=== PATIENT | female | born 1995 | race Two or more races ===

== ENCOUNTER 2017-12-11 16:57 | Emergency (ER) | payer MEDICARE, OTHER ==
[~2017-12-11] VITALS: Ht 170.2 cm; Wt 108.9 kg
[~2017-12-11 16:57] MED LIST: Acetaminophen PO; ESCI10TA PO; MULT1TAB73 PO
[2017-12-11 17:50] LABS: CREATININE 0.6 mg/dL (0.6-1.3); POTASSIUM 3.6 mmol/L (3.5-5.1)
[2017-12-11 17:53] LABS: LYMPHOCYTES # (AUTO) 0.7 K/uL (20.0-40.0); MEAN CORPUSCULAR VOLUME 99.7 fL (75.5-95.3); NEUTROPHILS # (AUTO) 1.9 K/uL (1.8-8.9); RED BLOOD CELL COUNT(AUTO) 2.91 MIL/uL (3.63-4.92); WHITE BLOOD COUNT (AUTO) 2.8 K/uL (3.8-11.8)
[2017-12-11 17:55] LABS: BILIRUBIN,DIRECT 0.1 mg/dL (0.0-0.2); BILIRUBIN,TOTAL 0.3 mg/dL (0.2-1.0); TOTAL PROTEIN, SERUM 6.7 g/dL (6.4-8.2)
[2017-12-11 17:56] LABS: BASOPHILS % (AUTO) 0.5 % (0.0-2.0); HEMOGLOBIN 9.8 g/dL (10.9-14.3); LYMPHOCYTES % (AUTO) 24.9 % (20.5-51.5); MEAN CORPUSCULAR HEMOGLOBIN 33.5 uug (24.7-32.8); MEAN CORPUSCULAR HGB CONC 34 g/dL (32.3-35.6); MONOCYTES # (AUTO) 0.1 K/uL (2.0-10.0); MONOCYTES % (AUTO) 4.5 % (0.0-11.0); NEUTROPHILS % (AUTO) 69.1 % (38.5-71.5)
--- NOTE | 2017-12-11 17:58 | NUR ---
Patient's mother left ER & said that she will be back in 1.5 hours, MD aware.
[2017-12-11 17:59] LABS: PLATELET COUNT (AUTO) 38 K/uL (179-408)
[2017-12-11 18:08] LABS: *BILIRUBIN,URIN NEGATIVE (NEGATIVE); *BLOOD, URINE NEGATIVE (NEGATIVE); *CLARITY,URINE CLEAR (CLEAR); *COLOR,URINE YELLOW (YELLOW); *KETONES,URINE NEGATIVE (NEGATIVE); *PROTEIN,URINE NEGATIVE (NEGATIVE); *UROBILINOGEN,URINE 0.2 E.U./dl (NORMAL); LEUKOCYTE ESTERASE ,URINE NEGATIVE (NEGATIVE); NITRITE, URINE NEGATIVE (NEGATIVE); PH,URINE 7.5 (5.0-8.0); UGLUCOSE NEGATIVE (NEGATIVE)
--- NOTE | 2017-12-11 18:15 | NUR ---
Facesheet was faxed per [email or web address].
[2017-12-11 18:23] LABS: MUCUS,URINE MODERATE /LPF (0-FEW); RBC,URINE 0-3 /HPF (0-3); SQUAMOUS EPITHELIAL CELL,UR FEW /HPF (NONE SEEN); WBC,URINE 0-3 /HPF (0-3)
[2017-12-11 18:34] LABS: BAND % (MANUAL) 11 % (0-10); EOSINOPHILS % (MANUAL) 2 % (0-8); LYMPHOCYTES % (MANUAL) 22 % (20-40); MONOCYTES % (MANUAL) 7 % (2-10); NEUTROPHILS % (MANUAL) 58 % (42-75)
--- NOTE | 2017-12-11 19:08 | NUR ---
SBAR to SLAVA Rojas
--- NOTE | 2017-12-11 20:20 | NUR ---
DR. HERR TALKING TO PT AND PT'S MOTHER AT BEDSIDE.
--- NOTE | 2017-12-11 20:30 | NUR ---
IV removed. Catheter intact and site benign. Pressure and 4x4 gauze applied to site. No bleeding noted.
--- NOTE | 2017-12-11 20:37 | NUR ---
Patient discharged to home in stable conditon with mother and sister. Written and verbal after care instructions given to patient and mother. Patient and pt's mother verbalizes understanding of instructions. pt left ER via wheelchair. no acute distress noted. all belongings with pt. vss.
[2017-12-11 20:38] VITALS: BP 114/71
== END 2017-12-11 20:39 | disposition home or self-care (01) ==
LOC: ER 17:03
DX: D61.818 Other pancytopenia (principal); Z79.899 Other long term (current) drug therapy
CPT/HCPCS: 36415; 70030-TC; 71045; 83605; 85025; 85730; 86850; 86900; 86901; 87040; 87086; A4663

== ENCOUNTER 2018-08-07 16:24 | Inpatient (IN) | payer MEDICARE, OTHER ==
[~2018-08-07] VITALS: Ht 172.7 cm; Wt 85.4 kg
[2018-08-07 23:00] VITALS: BP 147/91
--- NOTE | 2018-08-07 23:00 | NUR ---
Pt was admitted and placed on cool aerosol 28%, saturation is 99% HR 74. No signs of respiratory distress noted at this time. Pt is trached with a Shiley 6 DCT trach, which is secured and patent. Back-up trach at bedside. Will continue to monitor pt throughout shift.
--- NOTE | 2018-08-07 23:00 | NUR ---
ADMITTED FROM [facility].A BY [facility]ULANCE, EYES CLOSED, NOT RESPONSIVE TO VERBAL STIMULI, ON P-MIST 28%, KHANNA CATHETER #16 BY 10ML BALLOON PATENT AND DRAINING YELLOW URINE, CRIS AREA AND BETWEEN BUTTOCKS EXCORIATION NOTED, BLUE DISCOLORATION AT LEFT ANTECUBITAL AREA AND RIGHT UPPER ARM NOTED, HEPLOCK AT RIGHT FOREARM PATENT, TRACH SHILEY #6, FATHER AT BEDSIDE,99.0,74,18,144/91, O2SAT 99%, COLOR PINK, RESPIRATORY THERAPIST AT BEDSIDE, PUT ON P-MIST 28%, RESPIRATORY DISTRESS NOTED.
--- NOTE | 2018-08-08 00:05 | NUR ---
FATHER LEFT PT,S ROOM, PT CHECKED AT 2430, NO RESPIRATORY DISTRESS NOTED, WARM TO TOUCH, REPOSITIONED.
--- NOTE | 2018-08-08 00:45 | NUR ---
FOUND PT WITH NO PULSE AND NO RESPIRATION, CALLED RESPIRATORY THERAPIST AND SCREEN PRINTING PASTER, SCREEN PRINTING PASTER CHECKED PT AND CALLED E.R. DOCTOR, DR PEEWEE CADET PRONOUNCED PT.
--- NOTE | 2018-08-08 02:00 | NUR ---
MOTHER MICHAEL VILLARREAL CALLED AND LEFT A MESSAGE TO CALL BACK [facility] BY SENIOR APPLICATION SECURITY CONSULTANT EDUARDO.
--- NOTE | 2018-08-08 02:30 | NUR ---
0230& 0245 CALLED MOTHER MICHAEL VILLARREAL AND LEFT A MESSAGE.
--- NOTE | 2018-08-08 03:00 | NUR ---
0300& 0315 CALLED MOTHER AND LEFT A MESSAGE IN [place].
--- NOTE | 2018-08-08 04:30 | NUR ---
BODY TRANSFERRED TO [facility] BY [facility]ON[facility] WITH REMELT FURNACE EXPEDITER AND STAFF.
== END 2018-08-08 04:30 | DRG 189 ==
LOC: SA 23:12
PROVIDERS: ATTEND Internal Medicine Pulmonary Disease
DX: J96.10 Chronic respiratory failure, unspecified whether with hypoxia or hypercapnia (principal); C71.7 Malignant neoplasm of brain stem; Z93.0 Tracheostomy status; R13.10 Dysphagia, unspecified; Z93.1 Gastrostomy status; Z92.3 Personal history of irradiation; Z92.21 Personal history of antineoplastic chemotherapy; Z51.5 Encounter for palliative care; Z66 Do not resuscitate